=== PATIENT | male | born 1980 ===

== ENCOUNTER 2021-05-11 09:48 | Emergency (ER) | payer OTHER ==
[~2021-05-11] VITALS: Ht 182.9 cm; Wt 97.5 kg
[2021-05-11] MEDS ORDERED: ZIAC 5-6.25 MG1 EACH (10:30)
== END 2021-05-11 16:01 | disposition home or self-care (01) ==
LOC: ER 09:48
DX: T78.40XA Allergy, unspecified, initial encounter (principal); R11.10 Vomiting, unspecified